=== PATIENT | male | born 1965 | race Caucasian/White ===

== ENCOUNTER 2022-01-08 01:31 | Day surgery (SDC) | payer OTHER, SELFPAY ==
[2022-01-01 10:56] VITALS: BMI 26.4
--- NOTE | 2022-01-07 15:29 | PM.HPGS ---
History of Present Illness History of Present Illness Consent: Risks, benefits, and alternatives have been discussed and questions answered. Patient agrees to proceed with procedure. Chief complaint: neoplasm screening Narrative: Celestino Quintero is a 56 year old male Referred for colon cancer screening. He had a tubular adenoma removed about 5 years ago. Review of Systems Review of Systems: All systems reviewed & are unremarkable except as noted in HPI and below PMFSH Past Medical History Medical History Melanoma Family History Family History Mother Family history of Parkinson's disease Family history of malignant neoplasm of breast in first degree relative Social History Social History Smoking status: Never smoker Second hand tobacco smoke exposure: No Alcohol intake: current Drinks per week: 1 Substance use: never Substance use type: does not use Living arrangements: with family Gender identity (if verbalized by the patient): Male Spiritual care concerns: No Meds Home Medications and Allergies Home Medications Medication Instructions Recorded Confirmed Type rosuvastatin 10 mg tablet 10 mg PO DAILY #90 tablet 09/21/21 01/08/22 Rx ferrous sulfate 325 mg PO DAILY 01/01/22 01/08/22 History sertraline 100 mg PO DAILY 01/01/22 01/08/22 History Allergies Allergy/AdvReac Type Severity Reaction Status Date / Time No Known Allergies Allergy Unknown Verified 01/08/22 10:35 Exam Resp: Auscultation: clear to auscultation bilaterally Cardio: Rate: regular rate Rhythm: regular rhythm GI: GI Palp: Yes Soft to palpation and No Tenderness to palpation present (GI) Assessment and Plan Assessment and plan (1) Colon cancer screening: Code(s): Z12.11 - Encounter for screening for malignant neoplasm of colon Status: Acute Assessment and Plan: Colonoscopy with possible biopsy or polypectomy or cautery or injection of substances.
[2022-01-08 10:36] VITALS: BP 130/79; PULSE 65; RESP 18; TEMP 35.9; O2SAT 99
[2022-01-08] MEDS: LACTATED RINGERS 1,000 ML 150 ML IV CONT (10:46)
--- NOTE | 2022-01-08 10:52 | P.PNAN_ITS ---
Anes - Initial Pre Proc Eval Procedure: Operation Date: 01/08/22 11:30 Proposed Procedures p Screening Colonoscopy - Werner Tompkins MD Date/Time: 01/08/22 10:52 Surgeon: Werner Tompkins MD Pre Op Diagnosis: neoplasm screening Patient Data Age: 56 Gender: M Height: 1.85 m Weight: 89.2 kg Last Vital Signs Temp 35.9 C L 01/08/22 10:36 Pulse 65 01/08/22 10:36 Resp 18 01/08/22 10:36 BP 130/79 01/08/22 10:36 Pulse Ox 99 01/08/22 10:36 Allergies Allergy/AdvReac Type Severity Reaction Status Date / Time No Known Allergies Allergy Unknown Verified 01/08/22 10:35 Home Medications Medication Instructions Recorded Confirmed Type rosuvastatin 10 mg tablet 10 mg PO DAILY #90 tablet 09/21/21 01/08/22 Rx ferrous sulfate 325 mg PO DAILY 01/01/22 01/08/22 History sertraline 100 mg PO DAILY 01/01/22 01/08/22 History Patient hx anesthesia problems: none Family hx anesthesia problems: none Results Review: All pre-operative results and documents have been reviewed as part of the pre-operative evaluation. REPLACED BY [facility] Past Medical History Medical History Melanoma Family History Family History Mother Family history of Parkinson's disease Family history of malignant neoplasm of breast in first degree relative Social History Social History Smoking status: Never smoker Second hand tobacco smoke exposure: No Alcohol intake: current Drinks per week: 1 Substance use: never Substance use type: does not use Living arrangements: with family Gender identity (if verbalized by the patient): Male Spiritual care concerns: No Anes - Eval Final PreProcedure Day of Procedure 01/08/22 10:52 Patient weight: overweight Heart: regular rate and rhythm Lungs: clear to auscultation Airway: Mallampati scale class II Neurological: alert and oriented Last oral intake: >/= 8 hours ASA classification: II Emergent: no Anesthetic plan: proceed Anesthesia type and monitoring: general GIVS and standard monitoring Results Review: All pre-operative results and documents have been reviewed as part of the pre-operative evaluation. Informed Consent: The patient's anesthetic plan and its attendant risks and benefits were discussed with the patient/family/POA. Questions were solicited and answers provided to the satisfaction of the patient/family/POA.
[2022-01-08] MEDS: SIMETHICONE ORAL SUSPENSION 20 MG/0.3 ML 30 ML BOTTLE 0.6 ML IRRIGATION (11:29)
[2022-01-08 11:38] VITALS: BP 102/57; PULSE 56; RESP 27; O2SAT 98
[2022-01-08 11:48] VITALS: BP 103/60; PULSE 52; RESP 21; O2SAT 98
[2022-01-08 11:58] VITALS: BP 110/59; PULSE 57; RESP 19; O2SAT 100
== END 2022-01-08 12:04 | disposition home or self-care (01) ==
PROVIDERS: PCP Family Medicine; Visit Provider Internal Medicine Gastroenterology
PROC: 0DJD8ZZ Inspection of Lower Intestinal Tract, Via Natural or Artificial Opening Endoscopic (ICD-10-PCS; CPT 45378; principal; 2022-01-08 11:30)
DX: Z12.11 Encounter for screening for malignant neoplasm of colon (principal); Z86.010 Personal history of colon polyps; K64.8 Other hemorrhoids; Z87.2 Personal history of diseases of the skin and subcutaneous tissue
CPT/HCPCS: 45378; J2704; J7120